=== PATIENT | female | born 1975 | race Caucasian/White ===

== ENCOUNTER 2023-06-02 00:27 | Day surgery (SDC) | payer OTHER, SELFPAY ==
[2023-05-30 15:23] VITALS: BMI 29.4
--- NOTE | 2023-05-30 15:43 | PC.NURSE ---
Report to the Outpatient Waiting Room, entrance under the green pavilion located off [facility], at time __0600 on date 06/02/23 . Planned Procedure Time: __0730 . Time changes happen often and if your time is changed the preop area will call you the afternoon before. - You and your visitor will be asked to self-screen and do not enter if you have any COVID symptoms. - Patients may have clear liquids (water, carbonated beverages, clear teas, apple juice) until 3 hours prior to surgery with a maximum of 20 ounces. - No food from midnight until time of surgery Take the following medications with a SIP of water the morning of surgery: ____CETIRIZINE DO NOT STOP ANY OF YOUR OTHER PRESCRIPTION MEDICATIONS PRIOR TO SURGERY ?EXCEPT THE FOLLOWING Medications to discontinue per physician MULTIVITAMIN Date to take last dose___05/30/23 Please no make-up, nail argentine, hairspray, perfume, deodorant, or body powder the day of surgery. No jewelry (including any body piercings) or valuables the day of surgery, leave them at home. Please take a shower or bath the night before, or the morning of, surgery with an antibacterial soap. Wear comfortable, loose fitting clothing. - Jewelry must be removed prior to entering the operating room. Rings and piercings that are not removed may be cut off. - The hospital will not accept responsibility for valuables. - Please leave all valuables, including medications, at home the day of surgery. If you are going home after surgery, a licensed wagon driver salesperson must drive you home. - NO public transportation without another adult if you receive anesthesia. - We recommend that an adult stay with you for 24 hours following discharge. - We also recommend that you do not drive, make important decision, drink alcoholic beverages, or take any drugs that were not prescribed by your health care provider for at least 24 hours after your discharge time. Follow any additional instructions given to you from your surgeon. If you or anyone in your household have experienced Covid symptoms in the past week, please notify your surgeon or the nurse liaison at the phone number below for possible testing. Telephone instructions given to _SHANNON and asked if any additional questions and then verbalized understanding. Patient advised to call surgeon office or pre surgery nurse liaison [phone] if any additional questions.
[2023-06-02] VITALS (12 sets, daily range): BP systolic 128–160; BP diastolic 72–106; PULSE 83–101; RESP 12–20; TEMP 36.4–36.8; O2SAT 96–100
--- NOTE | ~2023-06-02 | XR_ITS ---
EXAMINATION: XR chest 1V portable INDICATION: Possible foreign body TECHNIQUE: Portable AP chest at 1005 hours COMPARISON: None available FINDINGS: There are surgical changes of the breast. No radiopaque foreign body is identified. The kate gs are free of acute opacities. No pleural effusion or pneumothorax. The cardiomediastinal silhouette is normal. IMPRESSION: 1. No radiopaque foreign body identified. Reviewed, dictated and finalized at location B. BUFFER
[2023-06-02 06:34] LABS: Urine Cotinine NEGATIVE
--- NOTE | 2023-06-02 07:14 | P.PNAN_ITS ---
Anes - Initial Pre Proc Eval Procedure: Operation Date: 06/02/23 07:30 Proposed Procedures p Bilateral Breast Implant Removal - Samuel Rosario MD s Bilateral Breast Mastopexy with Galaflex - Samuel Rosario MD Date/Time: 06/02/23 07:14 Surgeon: Samuel Rosario MD Pre Op Diagnosis: Hx of Breast Aug, Breast Ptosis Patient Data Age: 47 Gender: F Height: 1.57 m Weight: 72 kg Allergies Allergy/AdvReac Type Severity Reaction Status Date / Time No Known Allergies Allergy Verified 06/02/23 06:08 Home Medications Medication Instructions Recorded Confirmed Type cetirizine 10 mg tablet 10 mg PO DAILY 05/30/23 06/02/23 History Laboratory Tests 06/02/23 06:16 Cotinine Negative Patient hx anesthesia problems: none Family hx anesthesia problems: none Results Review: All pre-operative results and documents have been reviewed as part of the pre- operative evaluation. [facility] Social History Social History Smoking status: Never smoker Alcohol intake: current Substance use: never Substance use type: does not use Living arrangements: with roommate(s) Spiritual care concerns: No Anes - Eval Final PreProcedure Day of Procedure 06/02/23 07:14 Patient weight: overweight Heart: regular rate and rhythm Lungs: clear to auscultation Airway: Mallampati scale class II Neurological: alert and oriented Last oral intake: >/= 8 hours ASA classification: II Emergent: no Anesthetic plan: proceed Anesthesia type and monitoring: general LMA and standard monitoring Results Review: All pre-operative results and documents have been reviewed as part of the pre- operative evaluation. Informed Consent: The patient's anesthetic plan and its attendant risks and benefits were discussed with the patient/family/POA. Questions were solicited and answers provided to the satisfaction of the patient/family/POA.
[2023-06-02] MEDS: LACTATED RINGERS 1,000 ML 30 ML IV CONT ×2 (07:16→10:22)
--- NOTE | 2023-06-02 07:18 | P.OP_ITS ---
Procedure Note - Detailed Date of Procedure 06/02/23 Pre-op Diagnosis Hx of Breast Aug, Breast Ptosis Post-op Diagnosis Same Procedure Performed Bilateral breast implant removal with mastopexy and Galaflex Surgeon Samuel Rosario MD Anesthesia General Findings Inverted T Superior pedicle Galaflex REF# [id number] Lipoaspirate: 600cc Removed implants: Smooth saline. Description of Procedure She is here today for the above. Previously and again today the risks, benefits, alternatives were discussed in extensive detail. I wanted her to be very realistic about the risks involved as well as expectations. We discussed aftercare and what to monitor for. Made sure answered all of her questions to her satisfaction today and consent was obtained. Marked in the preoperative holding area with their verification. The patient was taken to the operating room placed supine on the operating table. Anesthesia was provided by anesthesiology. A surgical time-out was taken. She was prepped and draped in a standard sterile fashion. Stab incision made and tumescent solution infiltration laterally. A 15 blade was used to make a lateral IMF incision and dissection was continued until the implant capsule was identified and incised. Ruptured smooth saline implants removed. No seroma. No worrisome features. I tailor tacked the breast into position. Placed her in a sitting position. Verified the nipple-areolar location based on preoperative planning as well as intraoperative observations and measurements in full agreement. For lateral contour suction lipectomy was completed based on S.A.F.EAnuja ruano utilizing a 4mm basket cannula based on preoperative planning, intraoperative observation, and rolling pinch test. She was placed supine. I de-epithelialized the pedicle. I then de-epithelialized the inferior breast tissue to create an autoaugmentation flap based on intercostal clinical sciences professor. I elevated medial and lateral tissue flaps as well for planned closure. The autoaugmentation flap was sutured to the chest wall with 2-0 PDS. Galaflex was soaking in a betadine solution. Trimmed and sutured into place with 2-0 Vicryl. I closed along the IMF with 2-0 Stratafix. Along the vertical with 2-0 PDS. I closed around the Gum[place] with 3-0 strata fix. 3-0 Monocryl along the vertical. 3-0 Stratafix along the IMF. I finally closed everything with running subcuticular 4-0 Monocryl and tissue glue. Fluffs and surgical bra were placed. Estimated Blood Loss 75 Drains No Packing No Pathology None sent Complications No immediate complications Condition Stable Disposition PACU
--- NOTE | 2023-06-02 07:18 | WPDHPUPDATE1 ---
History and Physical Update Update Date/Time: 06/02/23 07:18 History and Physical has been reviewed, including an updated exam of the patient. There are NO changes in the patient's condition. Risks, benefits, and alternatives have been discussed and questions answered. Patient agrees to proceed with procedure.
[2023-06-02] MEDS: NACL 0.9% IRRIG POUR BOTTLE 900 ML, GENTAMICIN SULFATE INJ 160 MG, ceFAZolin 2 GM, POVI... IRRIGATION (07:27)
[2023-06-02] MEDS: ceFAZolin 2 GM/D5W 50 ML 2 GM/50 ML BAG IVPB (07:27)
[2023-06-02] MEDS: LACTATED RINGERS IRRIG 1,000 ML, LIDOCAINE HCL 1% LOCAL INJ 50 ML, EPINEPHrine HCL INJ ... INFILTRATE (07:27)
[2023-06-02] MEDS: TRANEXAMIC ACID 1,000MG/ISO100 1,000 MG/100 ML BAG 200 MG IVPB (07:40)
[2023-06-02] MEDS: fentaNYL CITRATE INJ (*CRX) 100 MCG/2 ML VIAL 25 MCG IV PUSH ×8 (10:30→11:28)
[2023-06-02] MEDS: oxyCODONE HCL (*CRX) 5 MG TAB IR PO (12:05)
--- NOTE | 2023-06-02 12:08 | SUR.PHASEII ---
1202 DR LEWIS AWARE OF ELEVATED BP NO NEW ORDERS. PATIENT AND FAMILY INFORMED STATES WILL KEEP AN EYE ON IT.
[2023-06-02] MEDS: ONDANSETRON INJ 4 MG/2 ML VIAL IV PUSH (13:17)
[2023-06-02 13:53] LABS: Hepatitis B Surface Antigen Negative (Negative)
[2023-06-02 14:09] LABS: HIV 1/2 Ab P24 Ag Result Negative (Negative); Hepatitis C Virus Antibody Negative (Negative)
== END 2023-06-02 13:32 | disposition home or self-care (01) ==
PROVIDERS: PCP Internal Medicine; Visit Provider Surgery Plastic and Reconstructive Surgery
PROC: (CPT 19342; principal; 2023-06-02 07:30)
PROC: (CPT 19316; 2023-06-02 07:30)
DX: Z41.1 Encounter for cosmetic surgery (principal); T85.41XA Breakdown (mechanical) of breast prosthesis and implant, initial encounter; Y83.8 Other surgical procedures as the cause of abnormal reaction of the patient, or of later complication, without mention of misadventure at the time of the procedure
CPT/HCPCS: 19316; 15777 ×2; 15877; 19330; 71045; 80307; 86703; 86803; 87340; A9270; G0432; J0171; J0690; J1100; J1580; J1596; J2250; J2371; J2405; J2704; J3010; J7120

== ENCOUNTER 2024-04-17 09:34 | Outpatient (CLI) | payer OTHER, SELFPAY ==
--- NOTE | ~2024-04-17 | MMUS_ITS ---
EXAMINATION: MM diagnostic isaiah RT w cici, US breast RT limited HISTORY: Follow-up right breast masses TECHNIQUE: Additional 3-D tomosynthesis images of the right breast were performed and synthetic 2-D i mages were generated. CAD analysis was submitted and interpreted. High resolution Limited right breas t ultrasound was performed. COMPARISON: Comparison to multiple prior studies sequentially, with oldest reviewed study dated 12/04. BREAST PARENCHYMAL COMPOSITION: Not dense: There are scattered areas of fibroglandular density. FINDINGS: MAMMOGRAPHIC FINDINGS: There are 2 adjacent small masses with indistinct margins in the lower aspect of the right breast loc ated centrally and posteriorly. No suspicious calcifications or architectural distortion. ULTRASOUND: Limited left breast ultrasound: At 4:00, 9 cm from the nipple there is a 7 mm simple cyst. At 7:00, 3 cm from the nipple there is a 2 mm cyst. Near the nipple there is a 4 mm cyst. These cysts may corre spond to the areas of mammographic abnormality. IMPRESSION: 1. Probable benign findings of the right breast. 2. Six-month follow-up diagnostic right mammogram and right breast ultrasound recommended. BI-RADS category 3, probably benign findings. Reviewed, dictated and finalized at location A. [facility] IMPRESSION: 1. Probable benign findings of the right breast. 2. Six-month follow-up diagnostic right mammogram and right breast ultrasound r ecommended. BI-RADS category 3, probably benign findings.
== END 2024-04-17 09:35 | disposition home or self-care (01) ==
PROVIDERS: PCP Nurse Practitioner Women's Health; Visit Provider Nurse Practitioner Women's Health
DX: R92.8 Other abnormal and inconclusive findings on diagnostic imaging of breast (principal)
CPT/HCPCS: 76642; 77061; 77065; G0279